=== PATIENT | female | born 1985 | race Caucasian/White ===

== ENCOUNTER 2018-10-29 08:14 | Day surgery (SDC) | payer OTHER ==
[2018-10-28 10:33] LABS: HEMATOCRIT 44.1 % (36.0-47.0); HEMOGLOBIN 15.2 g/dL (12.0-15.5); MEAN CORPUSCULAR HEMOGLOBIN 32.2 pg (27.0-33.4); MEAN CORPUSCULAR HGB CONC 34.5 g/dL (32.0-36.0); MEAN CORPUSCULAR VOLUME 93 fl (80-97); PLATELET COUNT 296 10^3/uL (150-450); RED BLOOD COUNT 4.73 10^6/uL (3.72-5.28); RED CELL DISTRIBUTION WIDTH 13.8 % (11.5-14.0); WHITE BLOOD COUNT 10.1 10^3/uL (4.0-10.5)
[2018-10-28 11:14] LABS: APPEARANCE,URINE SLIGHTLY-CLOUDY; BILIRUBIN,URINE NEGATIVE (NEGATIVE); COLOR,URINE YELLOW; GLUCOSE, URINE NEGATIVE (NEGATIVE); KETONES,URINE NEGATIVE (NEGATIVE); LEUKOCYTE ESTERASE,URINE MODERATE (NEGATIVE); NITRITE,URINE NEGATIVE (NEGATIVE); PROTEIN,URINE 30 mg/dL (NEGATIVE); URINE SPECIFIC GRAVITY 1.023
[~2018-10-29 08:14] MED LIST: LACTATED RINGERS 1000 ML IV PRN; LIDOCAINE 0.5% INJ-PF (5 MG/ML) 50 ML SDV SUBCUT PRN
[2018-10-29] MEDS ORDERED: DEXAMETHASONE SOD PHOSPHATE INJ 4 MG/1 ML VIAL ONE (09:51)
[2018-10-29] MEDS ORDERED: ONDANSETRON HCL INJ/PF 4 MG/2 ML SDV ONE (09:51)
[2018-10-29] MEDS ORDERED: FENTANYL CITRATE INJ/PF 100 MCG/2 ML AMPUL ONE (10:15)
[2018-10-29] MEDS ORDERED: MIDAZOLAM 2 MG/2 ML INJ ONE (10:15)
[2018-10-29] MEDS ORDERED: PROPOFOL INJ 200 MG/20 ML VIAL IV ONE (10:15)
[2018-10-29] MEDS ORDERED: ACETAMINOPHEN 1,000 MG/100 ML RTUPB IV ONE (10:15)
[2018-10-29] MEDS ORDERED: LIDOCAINE 1% INJ-PF (10 MG/ML) 30 ML SDV ONE (10:26)
[2018-10-29] MEDS ORDERED: VASOPRESSIN INJ 20 UNIT/1 ML VIAL ONE (10:29)
[2018-10-29] MEDS ORDERED: MEPERIDINE HCL/PF INJ 25 MG/1 ML DISP.SYRIN IV PRN (11:02)
[2018-10-29] MEDS ORDERED: PROMETHAZINE HCL INJ 25 MG/1 ML VIAL IV PRN (11:02)
[2018-10-29] MEDS ORDERED: FENTANYL CITRATE INJ/PF 100 MCG/2 ML AMPUL IV PRN ×3 (11:02)
[2018-10-29] MEDS ORDERED: DIPHENHYDRAMINE HCL 50 MG/ML VIAL IV PRN (11:02)
[2018-10-29] MEDS: FENTANYL CITRATE INJ/PF 100 MCG/2 ML AMPUL ONE ×2 (11:45→11:50)
[2018-10-29] MEDS ORDERED: OXYCODONE-ACETAMINOPHEN 5-325 MG TABLET PO PRN (11:53)
[2018-10-29] MEDS ORDERED: ONDANSETRON HCL 8 MG TABLET PO PRN (11:53)
--- NOTE | 2018-10-29 12:08 | OPERATIVE REPORT E ---
Operative Report NAME: LONA LANDIN : 1985 AGE: 33Y DATE OF SURGERY: 10/29/2018 ROOM: PREOPERATIVE DIAGNOSIS: Recurrent Bartholin duct abscess. POSTOPERATIVE DIAGNOSIS: Recurrent Bartholin duct abscess. OPERATION: Excision of Bartholin gland. SURGEON: Melissa MERCADO M.D. ANESTHESIA: General. ESTIMATED BLOOD LOSS: Less than 500 mL. TISSUE REMOVED: Bartholin gland. PROCEDURE: The patient was placed in the dorsal supine position, prepped and draped in the usual sterile fashion. The cyst wall was located on the left. The skin was then injected with dilute solution of Pitressin and Xylocaine. A linear incision was made and using sharp and blunt dissection the cyst was carefully dissected away down to the base. Multiple vessels of bleeding were encountered and these were clamped and free tied, and meticulous hemostasis was noted. The underlying tissue was then closed using multiple interrupted 2-0 Vicryl, and the skin defect was closed with a running subcuticular stitch of 2-0 Vicryl. The patient tolerated the procedure well and was taken to recovery in good condition. DICTATING PHYSICIAN: Melissa MERCADO M.D. [id number] PHY#: [id number] ID: [id number] JOB#: [id number] ACCT: [id number] cc:Melissa MERCADO M.D. >
[2018-10-29] MEDS ORDERED: OXYCODONE-ACETAMINOPHEN 5-325 MG TABLET ONE (12:26)
[2018-10-29] MEDS ORDERED: IBUPROFEN 800 MG TABLET ONE (13:07)
[2018-10-29 13:53] VITALS: BP 151/95
[2018-10-29] MEDS ORDERED: IBUPROFEN 800 MG TABLET PO SCH (14:00)
== END 2018-10-29 13:50 | disposition home or self-care (01) ==
LOC: OROUT 08:14 → EDBD 10:15 → OROUT 13:50
PROVIDERS: ATTEND Obstetrics & Gynecology Gynecology
DX: N75.1 Abscess of Bartholin's gland (principal); F17.210 Nicotine dependence, cigarettes, uncomplicated
CPT/HCPCS: 36415; 85027; 81025; 81001; 88305 ×2; 56740; J2250; J1100; J3010; J3490 ×2; J2405; J2704; J0131; 940